=== PATIENT | male | born 1970 | race Caucasian/White ===

== ENCOUNTER 2017-03-04 10:54 | Inpatient (IN) | payer OTHER ==
[~2017-03-04] VITALS: Ht 175.3 cm; Wt 94.3 kg
[2017-03-04] VITALS (22 sets, daily range): BP systolic 133–219; BP diastolic 70–161
--- NOTE | ~2017-03-04 | EKG ---
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
--- NOTE | ~2017-03-04 | EKG ---
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
--- NOTE | ~2017-03-04 | 2DMMODE ---
[facility] [place] [address] 2 D/M-MODE ECHOCARDIOGRAM Name: BONNIE SULLIVAN Room #: 218-P [facility] IN ..#: [id number] Admission: 03/04/17 Attend Phys: Joss Duffy MD Discharge: Date of : 68 Date of Service: 03/06/17 1125 Report #: [id number] THIS REPORT FOR: //name// APPROVED REPORT Study performed: 03/06/2017 09:23:40 EXAM: Comprehensive 2D, Doppler, and color-flow Echocardiogram Patient Location: Bedside Room 218 Blood Pressure: 152/114 mmHg HR: 55 bpm Rhythm: NSR Other Information Study Quality: Adequate Indications Bradycardia, uncontrolled HTN. Hx: HTN, HLP 2D Dimensions RVDd: 41.50 mm LVEF(%): 80.94 (>50%) IVSd: 12.83 (7-11mm) LVOT Diam: 22.50 (18-24mm) LVDd: 40.46 mm PWd: 13.09 (7-11mm) Ascending Aorta: 31.64 mm LVDs: 20.59 (25-40mm) Aortic Root: 36.84 mm Clements's LVEF: 80.94 % Volumes Left Atrial Volume (Systole) Single Plane 4CH: 33.89 mL Single Plane 2CH: 63.69 mL LA ESV Index: 25.00 mL/m2 Aortic Valve AoV Peak Kali.: 1.41 m/s AO Peak Gr.: 7.96 mmHg LV Max P.84 mmHg LV Max: 1.21 m/s Mitral Valve MV PHT: 63.94 ms MV E Max Kali.: 0.95 m/s E/A Ratio: 1.6 MV A Kali.: 0.59 m/s MV Decel. Time: 220.47 ms [facility] [place] [address] 2 D/M-MODE ECHOCARDIOGRAM Name: NATEBONNIE Yadi Room #: 218-P [facility] IN ..#: [id number] Admission: 03/04/17 Attend Phys: Joss Duffy MD Discharge: Date of : 68 Date of Service: 03/06/17 1125 Report #: [id number] Pulmonary Valve PV Peak Kali.: 0.97 m/s PV Peak Gr.: 3.78 mmHg Tricuspid Valve RAP Estimate: 5.00 mmHg Left Ventricle The left ventricle is normal size. There is normal LV segmental wall motion. Mild concentric left ventricular hypertrophy. Left ventricular systolic function is hyperdynamic. LVEF is 65-70%. Grade II - pseudonormal filling dynamics. Right Ventricle The right ventricle is normal size. The right ventricular systolic function is normal. Atria The left atrium size is normal. The right atrium size is normal. Aortic Valve The aortic valve is normal in structure. Trace aortic regurgitation. There is no aortic valvular stenosis. Mitral Valve The mitral valve is normal in structure. Trace mitral regurgitation. Tricuspid Valve The tricuspid valve is normal in structure. There is no tricuspid valve regurgitation noted. Pulmonic Valve The pulmonary valve is normal in structure. Trace pulmonic regurgitation. Great Vessels Aortic root measures at the upper limits of normal. The ascending aorta is normal in size. IVC is normal in size and collapses >50% with inspiration. Pericardium There is no pericardial effusion. <Conclusion> [facility] [place] [address] 2 D/M-MODE ECHOCARDIOGRAM Name: BONNIE SULLIVAN Room #: 218-P [facility] IN .R.#: [id number] Admission: 03/04/17 Attend Phys: Joss Duffy MD Discharge: Date of : 68 Date of Service: 03/06/17 1125 Report #: [id number] The left ventricle is normal size. LVEF is 65-70%. Trace aortic regurgitation. Trace mitral regurgitation. Trace pulmonic regurgitation. <ELECTRONICALLY SIGNED> By: Antolin Mora MD 03/06/17 1125 1125 1125 Antolin Mora MD /INF
[2017-03-04] MEDS ORDERED: [UNRECOGNIZED DRUG - REMARK] (11:30)
[2017-03-04] MEDS ORDERED: [UNRECOGNIZED DRUG - OTHER] (11:30)
[2017-03-04 11:41] LABS: ABSOLUTE NEUTROPHILS 5.9 thou/uL (1.4-8.2); EOSINOPHILS 4.4 % (0.0-3.0); HEMATOCRIT 48.2 % (42.0-52.0); HEMOGLOBIN 17.1 gm/dL (14.0-18.0); LYMPHOCYTES 31.5 % (24.0-44.0); MCH 31.5 pg (26.0-34.0); MCHC 35.5 g/dL (28.0-37.0); MCV 88.6 fL (80.0-100.0); MONOCYTES 7.7 % (1.0-8.0); PLATELET COUNT 285 thou/uL (150-400); POLYS 55.4 % (36.0-66.0); RBC 5.44 mil/uL (4.50-6.00); RDW 12.4 % (10.5-14.5); WBC 10.7 thou/uL (4.0-11.0)
[2017-03-04 11:46] LABS: MANUAL DIFF NO
[2017-03-04 11:47] LABS: CALCIUM 9.3 mg/dL (8.5-10.1); CREATININE 1.3 mg/dL (0.7-1.3); POTASSIUM 4.2 mmol/L (3.5-5.1)
[2017-03-04 12:39] LABS: PLATELET ESTIMATE NORMAL
[2017-03-04 17:28] LABS: CSF CLARITY CLEAR; CSF COLOR COLORLESS; CSF WBC 0 /mm3 (0-10); MANUAL DIFF NO
[2017-03-04 17:29] LABS: NUMBER OF TUBES 1; VOLUME 0.5 ml
[2017-03-04 17:30] LABS: CSF GLUCOSE 68 mg/dL (40-70); CSF PROTEIN 40 mg/dL (15-45)
[2017-03-04 17:48] LABS: APTT 27.7 Seconds (24.5-32.8); INR 1.1; PROTIME 11.3 Seconds (9.3-11.4)
[2017-03-05] VITALS (33 sets, daily range): BP systolic 134–182; BP diastolic 73–131
[2017-03-05 01:07] LABS: LYME ANTIBODY SCREEN* 0.09 ISR (0.00-0.90)
[2017-03-05 04:07] LABS: HEMATOCRIT 47.8 % (42.0-52.0); HEMOGLOBIN 16.6 gm/dL (14.0-18.0); MCHC 34.8 g/dL (28.0-37.0); MCV 89.2 fL (80.0-100.0); RBC 5.36 mil/uL (4.50-6.00); RDW 12.6 % (10.5-14.5); WBC 15.4 thou/uL (4.0-11.0)
[2017-03-05 04:13] LABS: CALCIUM 9.2 mg/dL (8.5-10.1); CREATININE 1.3 mg/dL (0.7-1.3); POTASSIUM 4.4 mmol/L (3.5-5.1)
[2017-03-06] VITALS (7 sets, daily range): BP systolic 130–173; BP diastolic 71–117
[2017-03-06 04:30] LABS: HEMATOCRIT 48.6 % (42.0-52.0); HEMOGLOBIN 17.1 gm/dL (14.0-18.0); MCH 31.4 pg (26.0-34.0); MCHC 35.1 g/dL (28.0-37.0); MCV 89.5 fL (80.0-100.0); RBC 5.43 mil/uL (4.50-6.00); RDW 13.1 % (10.5-14.5); WBC 10.9 thou/uL (4.0-11.0)
[2017-03-06 04:47] LABS: CALCIUM 9.1 mg/dL (8.5-10.1); CREATININE 1.4 mg/dL (0.7-1.3)
[2017-03-07] VITALS (10 sets, daily range): BP systolic 114–174; BP diastolic 79–124
[2017-03-08 03:52] VITALS: BP 161/93
[2017-03-08 06:08] LABS: LYME IGG CSF 0.12 Index (0.00-0.09); LYME IGM CSF < 0.06 Index (0.00-0.06)
[2017-03-08 07:48] VITALS: BP 148/116
[2017-03-08 08:44] LABS: CALCIUM 9.7 mg/dL (8.5-10.1); CREATININE 1.6 mg/dL (0.7-1.3); POTASSIUM 4.7 mmol/L (3.5-5.1)
[2017-03-08 11:28] VITALS: BP 162/124
[2017-03-08 15:45] VITALS: BP 118/76
[2017-03-08] MEDS ORDERED: NITROGLYCERIN0.4 MG SUBLING (15:58)
[2017-03-08] MEDS ORDERED: PRINIVIL20 MG PO (15:59)
[2017-03-08] MEDS ORDERED: NIFEDIPINE ER60 M1 PO (15:59)
[2017-03-08 16:51] VITALS: BP 118/76
== END 2017-03-08 17:13 | disposition home or self-care (01) | DRG 305 ==
LOC: ER 10:54 → EROBS 15:09 → ICU 15:09 → 2N 03-05 12:35
PROVIDERS: Emergency Medicine; Hospitalist; Internal Medicine
PROC: 009U3ZX Drainage of Spinal Canal, Percutaneous Approach, Diagnostic (ICD-10-PCS; principal; 2017-03-04)
DX: I16.1 Hypertensive emergency (principal); H47.10 Unspecified papilledema; I49.9 Cardiac arrhythmia, unspecified; F32.9 Major depressive disorder, single episode, unspecified; E78.5 Hyperlipidemia, unspecified; Z88.0 Allergy status to penicillin; Z88.8 Allergy status to other drugs, medicaments and biological substances
CPT/HCPCS: 10081; 10203

== ENCOUNTER → 2017-06-28 | Outpatient (CLI) | payer OTHER ==
[~2017-06-28] MED LIST: NIFEDIPINE ER60 M1 PO; NITROGLYCERIN0.4 MG SUBLING; PRINIVIL20 MG PO; [UNRECOGNIZED DRUG - OTHER]; [UNRECOGNIZED DRUG - REMARK]
== END ==
LOC: CAT 10:28
DX: N13.2 Hydronephrosis with renal and ureteral calculous obstruction (principal); R31.9 Hematuria, unspecified

== ENCOUNTER → 2017-10-28 | Outpatient (CLI) | payer OTHER ==
--- NOTE | ~2017-10-28 | EKG ---
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
== END ==
LOC: CV 13:10
DX: J34.2 Deviated nasal septum (principal); J34.3 Hypertrophy of nasal turbinates; J35.1 Hypertrophy of tonsils; G47.33 Obstructive sleep apnea (adult) (pediatric); J30.2 Other seasonal allergic rhinitis; E66.3 Overweight; K13.79 Other lesions of oral mucosa; R06.83 Snoring